=== PATIENT | female | born 1985 | race African-American/Black ===

== ENCOUNTER 2022-03-03 15:34 | Emergency (ER) | payer MEDICAID, OTHER ==
[~2022-03-03] VITALS: Ht 172.7 cm; Wt 105.0 kg
[2022-03-03 15:57] VITALS: BP 128/84
[2022-03-03] MEDS ORDERED: CYCLOBENZAPRINE 10MG TABLET PO STA (18:38)
[2022-03-03] MEDS ORDERED: KETOROLAC 30MG/ML VIAL IM ONE (19:45)
[2022-03-03] MEDS ORDERED: CYCL5TAB MT (19:47)
== END 2022-03-03 21:06 | disposition home or self-care (01) ==
LOC: ER 15:34
DX: S06.0X9A Concussion with loss of consciousness of unspecified duration, initial encounter (principal); S20.219A Contusion of unspecified front wall of thorax, initial encounter; S50.12XA Contusion of left forearm, initial encounter; V43.52XA Car driver injured in collision with other type car in traffic accident, initial encounter; Y93.89 Activity, other specified; Y92.410 Unspecified street and highway as the place of occurrence of the external cause
CPT/HCPCS: 71045; 73090; 81025; 99284